=== PATIENT | female | born 1995 | race Caucasian/White ===

== ENCOUNTER 2017-02-21 02:24 | Emergency (ER) | payer MEDICAID ==
[~2017-02-21] VITALS: Ht 170.2 cm; Wt 69.4 kg
[2017-02-21 02:25] VITALS: BP 125/77
[2017-02-21] MEDS ORDERED: MORPHINE SULFATE 4 MG/ML, 1ML ONE (02:52)
[2017-02-21] MEDS ORDERED: ONDANSETRON 2MG/ML, 2ML ONE (02:53)
[2017-02-21] MEDS ORDERED: SODIUM CHLORIDE FLUSH 10ML SYR IVF ONE (03:00)
[2017-02-21] MEDS ORDERED: ONDANSETRON 2MG/ML, 2ML IVPush ONE (03:00)
[2017-02-21] MEDS ORDERED: SODIUM CHLORIDE 0.9% 1,000ML IVBOLUS ONE (03:00)
[2017-02-21] MEDS ORDERED: MORPHINE SULFATE 4 MG/ML, 1ML IVPush PRN (03:00)
[2017-02-21 03:10] LABS: BLOOD UREA NITROGEN 12 mg/dL (7-18)
== END 2017-02-21 04:15 | disposition home or self-care (01) ==
LOC: ED 03:39
DX: N10 Acute pyelonephritis (principal)
CPT/HCPCS: 36415; 76830; 80048; 81001; 82040; 84703; 85025; 87077; 87086; 96361; 96374; 96375; 99285; J2405; J7030; 87186

== ENCOUNTER 2017-02-24 10:33 | Emergency (ER) | payer MEDICAID ==
[~2017-02-24] VITALS: Ht 170.2 cm; Wt 69.2 kg
[2017-02-24 10:47] VITALS: BP 111/74
[2017-02-24] MEDS ORDERED: FAMOTIDINE 20 MG TABLET PO ONE (12:00)
[2017-02-24] MEDS ORDERED: FAMOTIDINE 20 MG TABLET ONE (12:02)
== END 2017-02-24 12:24 | disposition home or self-care (01) ==
LOC: ED 12:09
DX: L50.9 Urticaria, unspecified (principal); Z87.440 Personal history of urinary (tract) infections
CPT/HCPCS: 99283; J7512

== ENCOUNTER 2017-03-06 22:46 | Emergency (ER) | payer MEDICAID ==
[~2017-03-06] VITALS: Ht 170.2 cm; Wt 68.9 kg
[2017-03-06] MEDS ORDERED: CEFTRIAXONE 1,000 MG in SODIUM CHLORIDE 0.9% 50 ML IV ONE (23:30)
[2017-03-06] MEDS ORDERED: SODIUM CHLORIDE FLUSH 10ML SYR IVF ONE (23:30)
[2017-03-06] MEDS ORDERED: SODIUM CHLORIDE 0.9% 1,000ML IVBOLUS ONE (23:30)
[2017-03-06] MEDS ORDERED: KETOROLAC 30 MG/1 ML IVPush ONE (23:30)
[2017-03-06] MEDS ORDERED: CIPROFLOXACIN 500 MG TABLET PO ONE (23:30)
[2017-03-06] MEDS ORDERED: KETOROLAC 30 MG/1 ML IM ONE (23:30)
[2017-03-06] MEDS ORDERED: ONDANSETRON ODT 4 MG PO ONE (23:30)
[2017-03-06] MEDS ORDERED: KETOROLAC 30 MG/1 ML ONE (23:33)
[2017-03-06] MEDS ORDERED: ONDANSETRON ODT 4 MG ONE (23:33)
[2017-03-06] MEDS ORDERED: CIPROFLOXACIN 500 MG TABLET ONE (23:33)
[2017-03-07 00:43] VITALS: BP 99/56
== END 2017-03-07 00:48 | disposition home or self-care (01) ==
LOC: ED 23:50
DX: N10 Acute pyelonephritis (principal)
CPT/HCPCS: 81001; 87086; 96372; 99284; J1885; Q0162